=== PATIENT | male | born 1995 | race Caucasian/White ===

== ENCOUNTER 2017-07-22 07:07 | Emergency (ER) | payer SELFPAY ==
[~2017-07-22] VITALS: Ht 182.9 cm; Wt 192.8 kg
[2017-07-22 09:05] VITALS: BP 130/72
== END 2017-07-22 09:17 | disposition home or self-care (01) ==
LOC: ED 07:07
DX: M25.562 Pain in left knee (principal); J45.909 Unspecified asthma, uncomplicated
CPT/HCPCS: J1885; Q0092